=== PATIENT | male | born 1970 | race Hispanic/Latino ===

== ENCOUNTER 2024-02-18 13:37 | Emergency (ER) | payer OTHER ==
[~2024-02-18] VITALS: Ht 180.3 cm; Wt 111.1 kg
[2024-02-18 13:55] VITALS: BP 121/72; PULSE 82; RESP 16; TEMP 98.6; O2SAT 97
[2024-02-18] MEDS: traMADol HCL 50 MG TABLET PO ONE (14:47)
[2024-02-18] MEDS: teTANUS/diphthERIA TOXOID [ADULT] 0.5 ML VIAL IM ONE (14:49)
== END 2024-02-18 15:55 | disposition left against medical advice (07) ==
LOC: EDH 13:37
DX: M25.511 Pain in right shoulder (principal); M54.50 Low back pain, unspecified; M25.561 Pain in right knee; E11.9 Type 2 diabetes mellitus without complications; Z90.49 Acquired absence of other specified parts of digestive tract; V19.9XXA Pedal cyclist (driver) (passenger) injured in unspecified traffic accident, initial encounter; Y93.55 Activity, bike riding; Y92.89 Other specified places as the place of occurrence of the external cause; Y99.8 Other external cause status
CPT/HCPCS: 73030; 73080; 73502; 73562; 90471; 90714

== ENCOUNTER 2024-06-04 17:46 | Emergency (ER) | payer OTHER ==
[~2024-06-04] VITALS: Ht 180.3 cm; Wt 99.8 kg
[2024-06-04 17:57] VITALS: BP 143/89; PULSE 86; RESP 20; TEMP 98
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
[2024-06-04] MEDS: HYDROcodone/acetaMINOPHEN 10/325 MG TAB PO ONE (19:10)
== END 2024-06-04 19:16 | disposition home or self-care (01) ==
LOC: EDH 17:46
DX: S40.212A Abrasion of left shoulder, initial encounter (principal); S40.812A Abrasion of left upper arm, initial encounter; R07.89 Other chest pain; E11.9 Type 2 diabetes mellitus without complications; E78.00 Pure hypercholesterolemia, unspecified; Z90.49 Acquired absence of other specified parts of digestive tract; V18.4XXA Pedal cycle driver injured in noncollision transport accident in traffic accident, initial encounter; Y93.55 Activity, bike riding; Y92.488 Other paved roadways as the place of occurrence of the external cause; Y99.8 Other external cause status
CPT/HCPCS: 70450; 71250; 72125; 74176; 99285